=== PATIENT | female | born 1990 | race Caucasian/White ===

== ENCOUNTER → 2016-06-06 | Outpatient (CLI) | payer MEDICAID | LOC: FIMAGING 13:14 | PROVIDERS: ATTEND Obstetrics & Gynecology | DX: O36.5120 Maternal care for known or suspected placental insufficiency, second trimester, not applicable or unspecified (principal); Z3A.26 26 weeks gestation of pregnancy ==

== ENCOUNTER → 2016-06-20 | Outpatient (CLI) | payer MEDICAID | LOC: FIMAGING 13:26 | PROVIDERS: ATTEND Obstetrics & Gynecology | DX: O36.5930 Maternal care for other known or suspected poor fetal growth, third trimester, not applicable or unspecified (principal); Z3A.28 28 weeks gestation of pregnancy ==